=== PATIENT | male | born 1975 | race Caucasian/White ===

== ENCOUNTER 2020-03-21 11:55 | Emergency (ER) | payer OTHER, SELFPAY ==
[2020-03-21 11:57] VITALS: BP 153/87; PULSE 50; RESP 16; TEMP 36.6; O2SAT 98; BMI 24.4
--- NOTE | 2020-03-21 12:54 | HMH.EDEYEP ---
ED Disposition Clinical Impression: Corneal abrasion Qualifiers: Encounter type: initial encounter Laterality: right Qualified Code(s): S05.01XA - Injury of conjunctiva and corneal abrasion without foreign body, right eye, initial encounter Foreign body of right eye Qualifiers: Encounter type: initial encounter Qualified Code(s): T15.91XA - Foreign body on external eye, part unspecified, right eye, initial encounter Disposition: Home, Self-Care Condition on Discharge: Good Instructions: DI for Eye Pain, DI for Corneal Abrasion Additional Instructions: You have been evaluated for right eye pain, diagnosed with a metallic foreign body and corneal abrasion. Please use erythromycin drops 4 times daily. Take Tylenol and ibuprofen for pain. Follow-up with [facility] tomorrow morning at [address] [place] [address]. Return to the emergency department tonight if you have any new or worsening pain, vision changes, other concerns. Prescriptions: Erythromycin Base [Erythromycin 1gm opth ointment] 1 applicatio OP QID 5 Days #3.5 oint...g. Prescription Printed Referrals: Deanna Higgins [Primary Care Provider] - Time of Disposition: 13:04 - Critical Care Critical Care Time: No Attestation: On 03/21/20, the high probability of a clinically significant, sudden or life threatening deterioration of the following system(s) required my full and direct attention, intervention and personal management. The time I documented below is in addition to time spent performing reported procedures but includes the following listed in this critical care notation. Medical Decision Making - Cristiano Inquiry Pt receiving controlled substance: No Vital Signs: 03/21/20 11:57 Temperature 97.8 F Temperature Source Oral Pulse Rate [Left Radial] 50 L Respiratory Rate 16 Blood Pressure [Right Arm] 153/87 H Blood Pressure Mean [Right Arm] 109 Blood Pressure Position [Right Arm] Sitting 02 Sat by Pulse Oximetry 98 Oxygen Delivery Method Room Air Medical Decision Narrative: Summary this is a previously healthy 44-year-old male presenting to the emergency department with right eye pain. Patient is in no distress on arrival. Vital signs are stable. He has an obvious metallic foreign body over his cornea in his right eye at the 7 o'clock position. Other differential diagnoses include corneal abrasion, other foreign body. Tetracaine applied to the eye. Cotton tip applicator able to remove the metallic foreign body. Showed an indention in the cornea, Durning for corneal abrasion. Uptake of fluorescein. Patient given prescription for erythromycin ointment. Recommended to use 4 times daily. Does not wear contact lenses. I consulted ophthalmology who graciously agreed to see him in clinic tomorrow to remove any remaining rust. Patient's pain was controlled. Counseled to take Tylenol and ibuprofen. Stable for discharge. Eye Problem HPI - General Chief complaint: Eye Problems Stated complaint: rust in eye Time Seen by Provider: 03/21/20 12:24 Mode of Arrival: Ambulatory Limitations: No Limitations Description of Symptoms (Recalled from ER Triage Doc. by RN): to ed per pvt car with c/o rust in rt eye. pt states he was working on a car yesterday. pt states he had flushed rt eye with water with no relief. - History of Present Illness HPI Narrative: 44-year-old male presenting to the emergency department with right eye pain. He was working on a car yesterday when he felt something go into his eye. He had immediate pain, tearing, redness. During the evening he continued to feel like something was in his eye. He tried flushing it with water which helped. This morning when he woke up he had worsening pain. No pain with eye motion. No photophobia. No changes in his vision. Does not wear contacts - Related Data Home Medications Medication Instructions Recorded Confirmed Gabapentin [Gabapentin 300mg Cap] 300 mg PO
[2020-03-21 13:09] VITALS: BP 150/87; PULSE 78; RESP 20; TEMP 36.8; O2SAT 98
== END 2020-03-21 13:09 | disposition home or self-care (01) ==
PROVIDERS: Emergency Provider Emergency Medicine; PCP Nurse Practitioner Family
DX: S05.01XA Injury of conjunctiva and corneal abrasion without foreign body, right eye, initial encounter (principal); T15.91XA Foreign body on external eye, part unspecified, right eye, initial encounter
CPT/HCPCS: 99281

== ENCOUNTER 2021-08-09 19:44 | Emergency (ER) | payer OTHER, SELFPAY ==
--- NOTE | 2021-08-09 19:48 | XR_ITS ---
PROCEDURE INFORMATION: Exam: XR Left Hand Exam date and time: 08/09/2021 7:48 PM Age: 46 years old Clinical indication: Injury or trauma; Other: Engine block fell onto left hand; Crushing TECHNIQUE: Imaging protocol: XR Left hand. Views: 3 or more views. Total images: 3 COMPARISON: No relevant prior studies available. FINDINGS: Bones/joints: No acute fractures are identified. Moderate osteoarthritic changes in the DIP joints of the 2nd and 3rd fingers and in the STT joint at the wrist. There is mild swan-neck deformity of the 3rd finger. This is age indeterminate but may indicate tendon/volar plate injury in the 3rd finger, consider orthopedic follow-up as clinically indicated. Soft tissues: Normal. IMPRESSION: 1. No acute fractures are identified. 2. 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 3. [place]-neck deformity of the 3rd finger, which is age indeterminate but might indicate tendon/volar plate injury, consider orthopedic follow-up as clinically indicated.
--- NOTE | 2021-08-09 19:48 | XR_ITS ---
PROCEDURE INFORMATION: Exam: XR Left Forearm Exam date and time: 08/09/2021 7:48 PM Age: 46 years old Clinical indication: Injury or trauma; Other: Engine block fell onto left forearm; Blunt trauma (contusions or hematomas) and crushing; Arm, lower TECHNIQUE: Imaging protocol: XR Left forearm. Views: 2 views. Total images: 2 COMPARISON: CR XR WRIST LT MIN 3V 08/09/2021 7:50 PM FINDINGS: Bones/joints: No fractures. Proximal and distal radial ulnar alignment is normal. Elbow joint alignment is normal. Moderate osteoarthritic changes at the STT joint in the wrist. Soft tissues: No periostitis or osteolysis. No gross soft tissue abnormalities. No radiopaque foreign bodies are identified. Other findings: Normal mineralization. Carpal relationships are normal. IMPRESSION: No acute findings.
--- NOTE | 2021-08-09 19:48 | XR_ITS ---
PROCEDURE INFORMATION: Exam: XR Left Wrist Exam date and time: 08/09/2021 7:48 PM Age: 46 years old Clinical indication: Injury or trauma; Crushing; Patient HX: Engine block fell onto left wrist. TECHNIQUE: Imaging protocol: XR Left wrist. Views: 3 or more views. Total images: 3 COMPARISON: CR XR HAND LT MIN 3V 08/09/2021 7:47 PM FINDINGS: Bones/joints: Moderate osteoarthritic changes in the STT joint with subarticular cyst development in the scaphoid head and trapezium. At the volar margin of the trapezium on the lateral view, there is lucency traversing the proximal edge which could represent nondisplaced acute fracture of the osteoarthritic spurring in this region. Soft tissues: No periostitis or osteolysis. No gross soft tissue abnormalities. No radiopaque foreign bodies. Other findings: Carpal relationships are normal. Distal radioulnar alignment is normal. IMPRESSION: 1. No definite acute findings are identified. 2. Moderate osteoarthritis in the STT joint. 3. Questionable lucency traversing the volar proximal margin of the trapezium which might simply relate to the osteoarthritic erosions and subarticular cysts in the region, or might represent nondisplaced fracture of the osteoarthritic marginal spurring.
--- NOTE | 2021-08-09 19:54 | HMH.EDUTC ---
[facility] [place] Clinical Impression: Left hand pain, Left wrist pain Crushing injury of left hand Qualifiers: Encounter type: initial encounter Qualified Code(s): S67.22XA - Crushing injury of left hand, initial encounter Left wrist fracture Qualifiers: Encounter type: initial encounter Fracture type: closed Qualified Code(s): S62.102A - Fracture of unspecified carpal bone, left wrist, initial encounter for closed fracture Disposition: Home, Self-Care Condition on Discharge: Good Instructions: DI for a Hand Fracture, How to Take Care of Your Splint, DI for Wrist Pain Additional Instructions: Rest the extremity, apply ice for 15 minutes as tolerated three or four times per day, Elevate the extremity as tolerated while you are resting. Take ibuprofen for pain. I sent in a prescription to your pharmacy. Follow up with Dr. Chakraborty (orthopedics). I put in a referral but you need to call his office and schedule an appointment. PLEASE CALL HIS OFFICE FIRST THING IN THE MORNING (8 TO 9 AM) TO GET A FOLLOW UP APPOINTMENT. THEY MAY THINK YOU NEED A CT OF YOUR HAND AND WRIST AND WANT TO GET IT ORDERED BEFORE THEY SEE YOU. Follow up with your regular doctor. GO TO THE ER FOR ANY WORSENING SYMPTOMS IF YOU HAVE WORSENING SWELLING OR ANY OTHER CONCERNS (WORSENING PAIN ALSO), PLEASE RETURN AND GO THROUGH THE ER [facility]. IF THIS SWELLS TOO MUCH, YOU COULD GET COMPARTMENT SYNDROME, WHICH IS VERY DANGEROUS AND MUST BE AVOIDED. WATCH YOUR FINGER TIPS AND YOU NAIL BEDS FOR ANY COLOR CHANGES (DUSKY, PALE, ETC). RETURN TO THE ER [facility] FOR ANY CONCERNS. YOU SHOULD TAKE THE JESSICA WRAP OFF AND WRAP IT BACK LOOSER IF YOU HAVE ANY CONCERNS ALSO. MAKE SURE YOU KEEP IT ELEVATED AND APPLY ICE REGULARLY FOR 10 MINUTES OR SO EACH TIME. Prescriptions: Ibuprofen [Ibuprofen 800mg Tablet] 800 mg PO Q8HP PRN #30 tab PRN Reason: Moderate Pain Transmission Status: Received by [facility] #[id number] Referrals: Deanna Higgins [Primary Care Provider] - Yuval Chakraborty MD [Staff Physician] - Time of Disposition: 21:43 Medical Decision Making - Medical Records Medical records reviewed: No: I reviewed the patient's medical records. - Cristiano Inquiry Pt receiving controlled substance: No Vital Signs: 08/09/21 20:12 Temperature 99 F Temperature Source Oral Pulse Rate [Right Brachial] 88 Respiratory Rate 20 Blood Pressure [Right Arm] 186/99 H Blood Pressure Mean [Right Arm] 128 Blood Pressure Source [Right Arm] Automatic Cuff Blood Pressure Position [Right Arm] Sitting 02 Sat by Pulse Oximetry 99 Oxygen Delivery Method Room Air - Radiology Data #1 Image(s): Forearm Image Reviewed: Yes I reviewed the patient's radiology image, Yes I have reviewed radiologist's interpretation Preliminary Findings: Normal/NAD, No Fracture Seen PROCEDURE INFORMATION: Exam: XR Left Forearm Exam date and time: 08/09/2021 7:48 PM Age: 46 years old Clinical indication: Injury or trauma; Other: Engine block fell onto left forearm; Blunt trauma (contusions or hematomas) and crushing; Arm, lower TECHNIQUE: Imaging protocol: XR Left forearm. Views: 2 views. Total images: 2 COMPARISON: CR XR WRIST LT MIN 3V 08/09/2021 7:50 PM FINDINGS: Bones/joints: No fractures. Proximal and distal radial ulnar alignment is normal. Elbow joint alignment is normal. Moderate osteoarthritic changes at the STT joint in the wrist. Soft tissues: No periostitis or osteolysis. No gross soft tissue abnormalities. No radiopaque foreign bodies are identified. Other findings: Normal mineralization. Carpal relationships are normal. IMPRESSION: No acute findings. #2 Image(s): Wrist Image Reviewed: Yes I reviewed the patient's radiology image, Yes I have reviewed radiologist's interpretation Preliminary Findings: Abnormal PROCEDURE INFORMATION: Exam: XR Left Wrist
[2021-08-09 20:12] VITALS: BP 186/99; PULSE 88; RESP 20; TEMP 37.2; O2SAT 99; BMI 24.4
[2021-08-09 21:45] VITALS: BP 186/99; PULSE 88; RESP 18; TEMP 37.2
== END 2021-08-09 21:44 | disposition home or self-care (01) ==
PROVIDERS: Emergency Provider Nurse Practitioner Family; PCP Nurse Practitioner Family
DX: S67.22XA Crushing injury of left hand, initial encounter (principal); S62.102A Fracture of unspecified carpal bone, left wrist, initial encounter for closed fracture; W22.8XXA Striking against or struck by other objects, initial encounter; Y92.89 Other specified places as the place of occurrence of the external cause
CPT/HCPCS: 29125; 73090; 73110; 73130; 99202; G0463